=== PATIENT | female | born 1945 | race Caucasian/White ===

== ENCOUNTER 2021-04-17 14:23 | Emergency (ER) | payer MEDICARE, OTHER, SELFPAY ==
[2021-04-17 14:25] VITALS: BP 148/74; PULSE 108; RESP 22; TEMP 36.6; O2SAT 89; BMI 27.4
[2021-04-17 14:26] VITALS: BP 148/74; PULSE 108; RESP 22; TEMP 36.6; O2SAT 89
--- NOTE | 2021-04-17 14:58 | EKG12_ITS ---
Test Reason : Blood Pressure : / mmHG Vent. Rate : 084 BPM Atrial Rate : 084 BPM P-R Int : 162 ms QRS Dur : 072 ms QT Int : 362 ms P-R-T Axes : 042 045 044 degrees QTc Int : 427 ms Normal sinus rhythm Normal ECG Confirmed by HORTENCIA PAINTING, ROGELIO ([id number]), scientific editor KARUNA MAR ([id number]) on 04/19/2021 9:30:49 AM Referred By: ROD Confirmed By:ROGELIO BURNETT MD
--- NOTE | 2021-04-17 14:58 | RAD_ITS ---
STUDY: X-RAY CHEST REASON FOR EXAM: Female, 75 years old. Fever and cough TECHNIQUE: Single AP portable view of the chest. COMPARISON: None. FINDINGS: EKG leads overlie the chest Lungs are expanded with diffuse interstitial and airspace opacifications in both lung agee without effusions. This pattern of opacification suggests Covid pneumonia, but can be seen with multifocal pneumonitis or CHF. Normal size heart. Normal mediastinum and teagan. Normal visualized pulmonary arteries. Normal visualized aortic arch and descending thoracic aorta. There is a dextroscoliosis of the thoracic spine. Normal visualized ribs, clavicles, and shoulders. There is no demonstrated abnormality of the visualized soft tissue structures of the upper abdomen. RAD/Chest 1 View (Portable) IMPRESSION: Interstitial and airspace opacifications in both lung agee, differential as described above Electronically Signed: Dean Hicks MD at 16:48 EDT , Service support ,
--- NOTE | 2021-04-17 15:00 | EDS_ITS ---
HPI History of Present Illness Chief Complaint: Shortness of Breath Informant: patient Onset/Context/Timing Onset: Weeks (2+) Context: gradual Timing: Continuous Quality: Positive for Dyspnea on exertion Current Severity: Moderate Maximum Severity: Moderate Worsened by: Exertion and Coughing; Not Worsened By Lying flat Relieved by: Rest Associated Symptoms cough Chest Pain: Positive for Continuous (kind of); Negative for Pleuritic Narrative Narrative: 75-year-old healthy female presenting with 2+ weeks of respiratory illness including cough and malaise. She has not had Covid, nor has she been tested for it during this illness, nor was she vaccinated. Lives with her . No known contact with anyone with Covid that she knows of. She had myalgias early on in the illness but those are gone. No diarrhea or vomiting or abdominal pain. She states she kind of has chest discomfort and cannot describe what it is, where it is, or how often she has been getting it. She denies any recent travel. No leg pain or swelling. No history of DVT or PE. PFSH PFSH Medical History no medical history no medical history Home Medications albuterol sulfate [Ventolin HFA] 1 - 2 puff INHALATION Q4H PRN PRN #1 inhaler 04/17/21 [Rx Last Taken Unknown] azithromycin See Rx Instructions .ROUTE .COMPLEX #6 tab 04/17/21 [Rx Last Taken Unknown] dexamethasone [Decadron] 6 mg PO DAILY #6 tab 04/17/21 [Rx Last Taken Unknown] Allergy/AdvReac Type Severity Reaction Status Date / Time No Known Allergies Allergy Verified 04/17/21 14:26 Surgical History no surgical history Social History Smoking Status: Never smoker [facility] ED Constitutional Constitutional ED: Reports malaise and weakness; Denies chills or fever(s) Eyes Eyes: Denies change in vision or diplopia ENT ENT ED: Denies rhinorrhea or sore throat Cardiovascular Cardiovascular: Reports as per HPI and chest pain; Denies palpitations Respiratory/Chest Respiratory/Chest: Reports as per HPI, cough and dyspnea Gastrointestinal Gastrointestinal: Denies abdominal pain, diarrhea, nausea or vomiting Genitourinary Genitourinary ED: Denies dysuria or hematuria Musculoskeletal Musculoskeletal: Reports myalgias; Denies back pain or neck pain Integumentary Denies abscess or rash Neurologic Neurologic: Denies headache(s), paresthesias or weakness Psychiatric Psychiatric: Denies anxiety or suicidal thoughts EXAM Physical Exam Const Vital Signs: 04/17/21 14:25 04/17/21 14:26 04/17/21 15:34 Temperature 98 F 98 F 98.7 F Temperature Source Temporal Temporal Temporal Pulse Rate 108 H 108 H 83 Respiratory Rate 22 H 22 H 22 H Respiratory Effort Respiratory Depth Respiratory Pattern Blood Pressure 148/74 H 148/74 H 148/70 H Blood Pressure Mean 98 98 96 Pulse Ox 89 89 95 Oxygen Delivery Method Room Air Room Air Nasal Cannula Oxygen Flow Rate (L/min) 4 04/17/21 15:35 04/17/21 16:09 04/17/21 17:06 Temperature 98.6 F 98.3 F Temperature Source Temporal Temporal Pulse Rate 80 84 Respiratory Rate 20 H 16 Respiratory Effort Short of Breath Respiratory Depth Normal Respiratory Pattern Tachypnea Blood Pressure 151/84 H 154/96 H Blood Pressure Mean 106 115 Pulse Ox 96 95 Oxygen Delivery Method Room Air Nasal Cannula Nasal Cannula Oxygen Flow Rate (L/min) 4 4 Positive well nourished and well developed General Appearance ED: well developed and NAD HEENT Reports moist mucous membranes normocephalic and atraumatic Eyes PERRL and EOMs intact bilaterally Neck full ROM and supple Resp normal respiratory effort Auscultation: crackles right base Cardio regular rate, regular rhythm and no murmurs GI non-tender and non-distended Auscultation: normoactive bowel sounds Palpation: soft Back/Spine no CVA tenderness General Back: other FROM Extremity normal to inspection, no calf tenderness and no pedal edema General Extremety ED: Negative for edema, pulses abnormal or tenderness General Extremity: Negative for edema or pulses abnormal Neuro oriented x3, CN's II-XII intact bilaterally and no sensory deficits noted Sensorium / Orientation: awake and alert Motor Exam: strength 5/5 throughout Skin no rashes or lesions noted and no wounds MDM MDM MDM Narrative Medical decision making narrative: Rapid Covid test came back indeterminate. My suspicion is that she has Covid and that she was so far out that the rapid test was turning negative, so we ran PCR stat and came back positive confirming this. Her work-up was otherwise normal with the exception of her chest x-ray which does show pneumonia worse on the right than the left. Since she does have crackles on the right clinically, think would be reasonable to treat her with an antibiotic to cover the possibility of bacterial superinfection although I discussed with the patient it is unlikely to help anything. Since she is more than 2 weeks out of symptoms now, the only thing she meets criteria for medication gonsales is Decadron in addition to oxygen. She is on 3 L. She lives at home with her and is okay going home. I do not think admitting her to the hospital will benefit her anymore at this time as I can get her home on oxygen and Decadron from this emergency department. She got out of bed on her own and walk to and from the bathroom without any difficulty, she was 88% when she got back to the room but that was on room air, and she is doing well into the 90s on 3 L. Will prescribe her an albuterol inhaler as well, advised continuing to try to watch her pulse ox at home to watch for decreases, use her symptoms as a guide than 4 L to stay above 90% she needs to return to the ER. Discussed this with her and her daughter she is comfortable with that plan. Patient does not have a PCP. She was referred to the next doctor on the list of rotating unassigned docs, Dr. Colon. Lab Data Attestation: I reviewed the patient's lab results. Labs: Laboratory Results - last 24 hr 04/17/21 04/17/21 04/17/21 15:40 15:40 15:40 WBC 8.6 RBC 4.21 Hgb 12.6 Hct 38.0 MCV 90.3 MCH 29.9 MCHC 33.2 RDW Std Deviation 45.5 H RDW Coeff of Zuleyka 13.8 Plt Count 314 MPV 9.2 Immature Gran % (Auto) 0.900 Neut % (Auto) 76.4 H Lymph % (Auto) 14.2 L Burt % (Auto) 8.3 Eos % (Auto) 0.0 Baso % (Auto) 0.2 Absolute Neuts (auto) 6.5 Absolute Lymphs (auto) 1.21 Nucleated RBC % 0 Reactive Lymphocytes 1+ Platelet Estimate ADEQUATE RBC Morphology NORM C+C Sodium 136 Potassium 4.0 Chloride 101 Carbon Dioxide 29.0 Anion Gap 6 BUN 13 Creatinine 0.95 Estim Creat Clear Calc 45.54 Est GFR (MDRD) Af Amer 74 Est GFR (MDRD) Non-Af 61 BUN/Creatinine Ratio 13.7 Glucose 97 Lactic Acid 1.3 Calcium 8.4 L Troponin I High Sens 39 COVID-19 ([facility]) 04/17/21 16:00 WBC RBC Hgb Hct MCV MCH MCHC RDW Std Deviation RDW Coeff of Zuleyka Plt Count MPV Immature Gran % (Auto) Neut % (Auto) Lymph % (Auto) Burt % (Auto) Eos % (Auto) Baso % (Auto) Absolute Neuts (auto) Absolute Lymphs (auto) Nucleated RBC % Reactive Lymphocytes Platelet Estimate RBC Morphology Sodium Potassium Chloride Carbon Dioxide Anion Gap BUN Creatinine Estim Creat Clear Calc Est GFR (MDRD) Af Amer Est GFR (MDRD) Non-Af BUN/Creatinine Ratio Glucose Lactic Acid Calcium Troponin I High Sens COVID-19 ([facility]ESSA) Positive Radiography Diagnostic Testing: Clinical Impression(s) from Imaging Studies Chest X-Ray 04/17/21 14:58 IMPRESSION: Interstitial and airspace opacifications in both lung agee, differential as described above Electronically Signed: Dean Hicks MD at 16:48 EDT , Service support , EKG Initial EKG: Attestation: I personally reviewed and interpreted this EKG as follows: Interpretation: Sinus Rhythm and No Acute Injury Pattern Comments: Normal EKG Prior: No Prior Discharge Plan Triage Chief Complaint: Shortness of Breath ED Provider: Wes Arnold Dx/Rx/DC Orders Clinical Impression: Pneumonia due to 2019-nCoV, Hypoxemia Instructions: Coronavirus Disease 2019 (COVID-19): Caring for Yourself or Othe rs Prescriptions: New azithromycin 250 mg tablet See Rx Instructions .ROUTE .COMPLEX Qty: 6 RF: 0 dexamethasone [Decadron] 6 mg tablet 6 mg PO DAILY Qty: 6 RF: 0 albuterol sulfate [Ventolin HFA] 1 INHALER inhaler 1 - 2 puff inhalation Q4H PRN PRN (Reason: Wheezing) Qty: 1 RF: 0 Primary Care Provider: Care Physician,No Primary Referrals: Milo Colon MD [STAFF PHYSICIAN] - 5-7 Days Activity Restrictions/Additional Instructions: Try to get a home portable pulse oximeter and closely watch your oxygen levels periodically. If you stay below 90% for more than a minute or so, and you are requiring more than 4 L of oxygen to keep your oxygen levels above 90%, return to the emergency department for further evaluation. Disposition Disposition: Home, Self Care
--- NOTE | 2021-04-17 15:02 | NURSING ---
NO OLD EKGS
[2021-04-17 15:34] VITALS: BP 148/70; PULSE 82; PULSE 83; RESP 22; RESP 24; TEMP 37.1; O2SAT 95
[2021-04-17 15:35] VITALS: O2SAT 87
[2021-04-17] MEDS: 0.9% Normal Saline 1,000 ML 150 ML IV (15:36)
[2021-04-17 15:56] LABS: Absolute Lymphocyte Count 1.21 X10^3/uL (0.83-4.51); Absolute Neutrophil Count 6.5 X10^3/uL (2.0-7.7); Basophil# 0.02 X10^3/uL; Basophil% 0.2 % (0-1); Hemoglobin 12.6 g/dL (12.0-15.0); Lymphocyte # 1.21 X10^3/ul (0.83-4.51); Lymphocyte % 14.2 % (19-41); Mean Corp Hgb Conc 33.2 g/dL (32-36); Mean Corpuscular Hgb 29.9 pg (27.0-32.0); Mean Corpuscular Volume 90.3 fL (81-99); Mean Platelet Vol. 9.2 fl (6.2-12.0); Monocyte# 0.71 X10^3/uL; Monocyte% 8.3 % (0-10); NRBC Flagged by Analyzer 0 % (0-5); Neutrophil # 6.53 X10^3/uL (2.7-7.7); Neutrophil % 76.4 % (47-70); POSITIVE MORPHOLOGY YES; Platelet Count 314 K/mm3 (150-450); RBC Distribution Width CV 13.8 % (11.6-14.6); RBC Distribution Width SD 45.5 fl (35.1-43.9); Red Blood Count 4.21 M/mm3 (4.2-5.4); White Blood Count 8.6 K/mm3 (4.4-11.0)
[2021-04-17 16:00] LABS: Differential Indicated SCAN CRITERIA MET
[2021-04-17 16:09] VITALS: BP 151/84; PULSE 80; PULSE 81; RESP 20; TEMP 37; O2SAT 96
[2021-04-17 16:14] LABS: Lactic Acid 1.3 mmol/L (0.4-1.9)
[2021-04-17 16:15] LABS: Anion Gap 6 (5-15); BUN 13 mg/dL (7-18); BUN/Creat Ratio 13.7 RATIO (10-20); Calcium,Total 8.4 mg/dL (8.5-10.1); Chloride 101 mmol/L (98-107); Creatinine, Serum 0.95 mg/dL (0.55-1.02); EST Glomerular Filtration Rate 61 mL/min (>60); Est Glom Filt Rate - Afr Amer 74 mL/min (>60); Estimated Creatinine Clearance 45.54 ml/min; Glucose 97 mg/dL (74-106); Sodium Level 136 mmol/L (136-145); Troponin-I HS 39 pg/mL (3.0-54.0)
[2021-04-17 16:23] LABS: Platelet Estimate ADEQUATE (ADEQ); Reactive Lymphocyte 1+; Red Cell Morphology NORM C+C NORMAL (NORM C&C)
[2021-04-17 16:59] LABS: Probe Check PASS
[2021-04-17 17:06] VITALS: BP 154/96; PULSE 84; RESP 16; TEMP 36.8; O2SAT 95
--- NOTE | 2021-04-17 18:27 | CM.ED ---
SOCIAL WORK Referral Source: Dr. Arnold Reason for Consult: COVID-19 positive require home O2 Patient requires 3L O2 for home going. Patient in agreement to have O2 set up through [facility]. Patient lives home with . Daughter present in room with patient. Patient given pulse ox for home going. [employer] Quickscript completed by Dr. Arnold Script, COVID positive test result, and facesheet faxed to [id number] and called to [employer] telemarketing sales representative. Portable tank obtained for nurseDeandra from [id number] supply closet. RT to review home O2 with patient and daughter. Received call from electric train driver, Marakana who reports in [place] for set up and should arrive to patient's house in about 2 hours. Patient's daughter notified. CM updated via email for follow up. Plan: Home with home 02-COVID positive. Alfie Sarkar, CHARACTER ARTIST, AD OPERATIONS ASSOCIATE
[2021-04-17] MEDS: dexAMETHasone 10 MG/ML Vial 6 MG IV (19:04)
--- NOTE | 2021-04-18 14:37 | CASEMGMT ---
ED Home Oxygen follow-up: VINAY CASTRO called patient for ED home oxygen discharge. Ady answered, patient coughing and unable to speak at this time. Per patient had been doing well. Maintaining 90% on 3lpm. states that oxygen was setup without difficulty. Patient was able to fill prescriptions without issues. encouraged to schedule follow-up appt. voiced understanding and had no further questions or concerns.
--- NOTE | 2021-04-19 15:15 | CASEMGMT ---
[facility]INAY CASTRO ED Home O2 Follow-up: This RN GLORIA phoned patient for follow-up. Pt's Ady answered and stated he does not feel pt is over the hump yet but that she is improving. States pt continues to wear her home O2 at 3l/min, pt denies any difficulty breathing, and reports PO to be 90-92%. Pt is not eating much but is able to eat. They have reached out to her PCP to schedule a follow-up appointment but they have not received a return call. Pt's denies any further questions or concerns at this time. Kyle Neal RN CM
--- NOTE | 2021-04-22 17:28 | CASEMGMT ---
[facility]IN[facility] CASTRO ED Home O2 follow-up: This VINAY CASTRO contacted pt via phone. Pt's answered but handed phone to pt. Pt states she is doing better. States she is only wearing her O2 half the time and reports her PO to be 97% on RA just prior to this call. Pt states she has not had a f/u appt with her PCP but that someone had called her Thursday and they were getting the paperwork together. Pt denies any questions or concerns. Kyle Neal RN CM
== END 2021-04-17 19:20 | disposition home or self-care (01) ==
PROVIDERS: Emergency Provider Emergency Medicine
DX: U07.1 COVID-19 (principal); J12.82 Pneumonia due to coronavirus disease 2019; R09.02 Hypoxemia
CPT/HCPCS: 71045; 80048; 83605; 84484; 85025; 87040; 87635; 93005; 96361; 96374; 99285; J7030; U0005; A4216; U0003